=== PATIENT | male | born 1955 | race Caucasian/White ===

== ENCOUNTER 2016-12-29 08:10 | Day surgery (SDC) | payer OTHER ==
[2016-12-25 11:25] LABS: HEMATOCRIT 49.3 % (37.9-51.0); HEMOGLOBIN 16.9 g/dL (13.5-17.0); HGB HCT DIFFERENCE 1.4; MEAN CORPUSCULAR HEMOGLOBIN 33.7 pg (27.0-33.4); MEAN CORPUSCULAR HGB CONC 34.3 g/dL (32.0-36.0); MEAN CORPUSCULAR VOLUME 98 fl (80-97); RED BLOOD COUNT 5.01 10^6/uL (4.35-5.55); RED CELL DISTRIBUTION WIDTH 14.9 % (11.5-14.0); WHITE BLOOD COUNT 6.4 10^3/uL (4.0-10.5)
[2016-12-25 11:28] LABS: APPEARANCE,URINE CLEAR; BILIRUBIN,URINE NEGATIVE (NEGATIVE); GLUCOSE, URINE NEGATIVE (NEGATIVE); KETONES,URINE NEGATIVE (NEGATIVE); LEUKOCYTE ESTERASE,URINE TRACE (NEGATIVE); NITRITE,URINE NEGATIVE (NEGATIVE); PROTEIN,URINE NEGATIVE (NEGATIVE); URINE SPECIFIC GRAVITY 1.026
[2016-12-25 11:29] LABS: PARTIAL THROMBOPLASTIN TIME 26.1 SEC (23.5-35.8); PROTHROMBIN TIME 12.8 SEC (11.4-15.4)
--- NOTE | 2016-12-25 11:38 | RADIOLOGY REPORT (SQ) ---
EXAM DESCRIPTION: CHEST PA/LATERAL COMPLETED DATE/TIME: 12/25/2016 11:13 am REASON FOR STUDY: PRE-OP COMPARISON: None. EXAM PARAMETERS: NUMBER OF VIEWS: two views TECHNIQUE: Digital Frontal and Lateral radiographic views of the chest acquired. RADIATION DOSE: NA LIMITATIONS: none FINDINGS: LUNGS AND PLEURA: No opacities, masses or pneumothorax. No pleural effusion. MEDIASTINUM AND HILAR STRUCTURES: No masses or contour abnormalities. HEART AND VASCULAR STRUCTURES: Heart normal size. No evidence for failure. BONES: No acute findings. HARDWARE: Neural stimulator electrodes the thoracic spine. OTHER: No other significant finding. IMPRESSION: NO SIGNIFICANT RADIOGRAPHIC FINDING IN THE CHEST. TECHNICAL DOCUMENTATION: JOB ID: [id number] [employer]- All Rights Reserved
--- NOTE | 2016-12-25 12:18 | EKG REPORT ---
SEVERITY:- DEFECTIVE ECG - SINUS RHYTHM VENTRICULAR PREMATURE COMPLEX BORDERLINE PROLONGED QT INTERVAL BASELINE ARTIACT.REPEAT EKG. : Confirmed by: Ashley Escobar MD 25-Dec-2016 12:17:41
[~2016-12-29 08:10] MED LIST: CLINDAMYCIN 600 MG/D5W RTU 600 MG/50 ML RTUPB IV PRN; LACTATED RINGERS 1000 ML IV PRN; LIDOCAINE 0.5% INJ-PF (5 MG/ML) 50 ML SDV SUBCUT PRN
[2016-12-29] MEDS ORDERED: LIDOCAINE 1% INJ-PF (10 MG/ML) 30 ML SDV ONE (08:20)
[2016-12-29] MEDS ORDERED: BUPIVACAINE HCL 0.25% /EPINEPHRINE INJ/PF 30 ML SDV ONE (08:21)
[2016-12-29] MEDS ORDERED: FENTANYL CITRATE INJ/PF 100 MCG/2 ML AMPUL ONE (09:31)
[2016-12-29] MEDS ORDERED: MIDAZOLAM 2 MG/2 ML INJ ONE (09:31)
[2016-12-29] MEDS ORDERED: PROPOFOL INJ 200 MG/20 ML VIAL IV ONE (09:31)
[2016-12-29] MEDS ORDERED: ONDANSETRON HCL INJ/PF 4 MG/2 ML SDV IV PRN (10:15)
[2016-12-29] MEDS ORDERED: FENTANYL CITRATE INJ/PF 100 MCG/2 ML AMPUL IV PRN ×3 (10:15)
[2016-12-29] MEDS ORDERED: DIPHENHYDRAMINE HCL 50 MG/ML VIAL IV PRN (10:15)
[2016-12-29] MEDS ORDERED: CLINDAMYCIN 600 MG/D5W RTU 600 MG/50 ML RTUPB IV ONE (10:46)
--- NOTE | 2016-12-29 10:58 | OPERATIVE REPORT E ---
Operative Report NAME: HARMAN TORIBIO : 1955 AGE: 61Y DATE OF SURGERY: 12/29/2016 ROOM: PREOPERATIVE DIAGNOSIS: Spinal cord stimulator battery nonfunctioning. POSTOPERATIVE DIAGNOSIS: Spinal cord stimulator battery nonfunctioning. PROCEDURE: Removal of spinal cord stimulator battery and 3 electrodes. SURGEON: DINESH CHANEY M.D. DESCRIPTION OF PROCEDURE: After obtaining informed consent, advising the patient of the risks and benefits, including serious neurological injury, bleeding and infection, allergic reaction, and , he was taken to the operating room. He was placed comfortably in the prone position. Confirmation was assessed visually and verbally. He was then prepped with chlorhexidine with a suitable drying time prior to draping. The prior pulse generator, incision scar, and electrode anchors were seen under x-ray. The area around the scars was then sterilely draped after appropriate drying time. The previous incision scar was anesthetized with 1% lidocaine with bicarb followed by bupivacaine 0.25% with epinephrine. Sharp and blunt dissection was performed down to the pulse generator pocket and it was removed. This was readily identified. Electrocautery was minimally necessary for hemostasis. The old generator was removed easily and the electrode cut. A midline incision was made at the same time with the junior sales assistant *------* chaney and the capsule dissecting down to the midline near the anchors. The prior sutures were then removed and the leads were removed without difficulty with the tips intact. The area was then cleansed and adequately irrigated with a Betadine-containing solution. It was then closed with interrupted vertical mattress sutures in the midline and 3-0 Polysorb. The skin came nice together. The pocket was done in the same manner. The region was cleansed again followed by placement of Dermabond tape and cement. When this was dry, suitable *------* was placed and then Tegaderm spun over the top of this. He was taken back to the PACU for further postoperative care and monitoring and will follow up with [facility] with Dr. Chaney and Dr. Rizo for postoperative care. DICTATING PHYSICIAN: DINESH CHANEY M.D. [id number] PHY#: [id number] ID: [id number] JOB#: [id number] ACCT: [id number] cc:DINESH CHANEY M.D. >
--- NOTE | 2016-12-29 11:22 | RADIOLOGY REPORT (SQ) ---
EXAM DESCRIPTION: NO CHG FLUORO; SPINE SINGLE VIEW COMPLETED DATE/TIME: 12/29/2016 11:00 am REASON FOR STUDY: SPINAL STIMULATOR REMOVAL ASSIST WITH FLUORO IN OR G89.4 CHRONIC PAIN SYNDROME COMPARISON: None. FLUOROSCOPY TIME: Less than 1 second. 2 images saved to PACS. TECHNIQUE: Intra-operative images acquired during surgical procedure to evaluate progress. NUMBER OF IMAGES: 2 images. LIMITATIONS: None. FINDINGS: Images of the spine acquired during hardware removal. IMPRESSION: IMAGE(S) OBTAINED DURING PROCEDURE. COMMENT: Quality ID [id number]: Final reports for procedures using fluoroscopy that document radiation exp osure indices, or exposure time and number of fluorographic images (if radiation exposure indices are not available) Please consult full operative report of the attending physician for description of the procedure. TECHNICAL DOCUMENTATION: JOB ID: [id number] [employer]- All Rights Reserved
[2016-12-29] MEDS ORDERED: OXYCODONE-ACETAMINOPHEN 5-325 MG TABLET PO PRN (11:27)
[2016-12-29 13:03] VITALS: BP 128/79
--- NOTE | 2016-12-29 18:26 | EKG REPORT ---
SEVERITY:- NORMAL ECG - SINUS RHYTHM : Confirmed by: Blair Pedro MD 29-Dec-2016 18:25:45
== END 2016-12-29 12:10 | disposition home or self-care (01) ==
LOC: OROUT 08:10
PROVIDERS: ATTEND Student in an Organized Health Care Education/Training Program
PROC: 0JPT0MZ Removal of Stimulator Generator from Trunk Subcutaneous Tissue and Fascia, Open Approach (ICD-10-PCS; 2016-12-29)
PROC: 00PU0MZ Removal of Neurostimulator Lead from Spinal Canal, Open Approach (ICD-10-PCS; principal; 2016-12-29 10:00)
DX: Z45.49 Encounter for adjustment and management of other implanted nervous system device (principal); G89.4 Chronic pain syndrome; F17.210 Nicotine dependence, cigarettes, uncomplicated; M19.90 Unspecified osteoarthritis, unspecified site; M50.323 Other cervical disc degeneration at C6-C7 level; M47.892 Other spondylosis, cervical region; F32.9 Major depressive disorder, single episode, unspecified; M96.1 Postlaminectomy syndrome, not elsewhere classified; M79.1 Myalgia; M54.16 Radiculopathy, lumbar region; F45.42 Pain disorder with related psychological factors; J43.9 Emphysema, unspecified; F41.9 Anxiety disorder, unspecified; Z79.891 Long term (current) use of opiate analgesic; Z79.899 Other long term (current) drug therapy
CPT/HCPCS: 63661; 63688; 93005 ×2; 36415; 85027; 85610; 85730; 81001; 71020; 72020; 93010 ×2; J2250; J3490 ×2; J3010; J2704; 300